=== PATIENT | male | born 1980 | race Hispanic/Latino ===

== ENCOUNTER 2021-08-19 01:13 | Emergency (ER) | payer SELFPAY ==
[2021-08-19 01:45] LABS: #Basophils 0.1 thou/uL (0.0-0.2); #Eosinphils 0.4 thou/uL (0.0-0.7); #Lymphocytes 4.6 thou/uL (1.20-3.40); #Neutrophils 4.8 thou/uL (1.40-6.50); %Basophils 0.9 % (0.0-1.0); %Eosinophils 3.8 % (0.0-10.0); %Lymphocytes 42.5 % (21.0-51.0); %Monocytes 8.9 % (0.0-10.0); Hemoglobin 15.6 g/dL (14.0-18.0); Mean Corpuscular HGB CONC 36.1 g/dL (32.0-36.0); Mean Corpuscular Hemoglobin 32.3 pg (27.0-31.0); Mean Corpuscular Volume 89.5 fL (78.0-98.0); Mean Platelet Volume 6.6 fL (7.4-10.4); Platelet Count 333 thou/uL (130-400); Red Blood Cell (RBC) Count 4.83 mill/uL (4.70-6.10); White Blood Cell (WBC) Count 10.9 thou/uL (4.8-10.8)
[2021-08-19 02:08] LABS: ALT (SGPT) 29 U/L (8-55); AST (SGOT) 21 U/L (5-34); Albumin 4.3 g/dL (3.5-5.0); Alkaline Phosphatase 83 U/L (40-110); Anion Gap 14 mmol/L (10-20); BUN (Urea Nitrogen) 22 mg/dL (8.9-20.6); Bilirubin, Total 0.3 mg/dL (0.2-1.2); Calc. Creatinine Clearance 0 mL/min (70-130); Calcium 9.5 mg/dL (7.8-10.44); Carbon Dioxide 25 mmol/L (22-29); Chloride 103 mmol/L (98-107); Globulin 3.2 g/dL (2.4-3.5); Glucose 134 mg/dL (70-105); Lipase 23 U/L (8-78); Potassium 3.6 mmol/L (3.5-5.1); Protein, Total 7.5 g/dL (6.0-8.3); Sodium 138 mmol/L (136-145)
[2021-08-19] MEDS ORDERED: Ketorolac Tromethamine 30 MG/ML VIAL ONE ×2 (03:09→05:09)
[2021-08-19] MEDS ORDERED: Ondansetron PF 4 MG/2 ML Vial ONE (03:09)
[2021-08-19] MEDS ORDERED: Morphine 4 MG/ML VIAL ONE (04:30)
[2021-08-19 04:46] LABS: Bacteria/HPF None Seen HPF (None Seen); Bilirubin Negative (Negative); Blood, Urine 3+ (Negative); Clarity Clear (Clear); Glucose, Urine (Dipstick) Normal (Negative); Ketone, Urine Negative (Negative); Leukocyte Negative Leu/uL (Negative); Nitrite Negative (Negative); Protein, Urine (Dipstick) 30 mg/dL (Neg-Trace); RBC/HPF Greater than 50 HPF (0-3); Squamous Epithelial None Seen HPF (0-3); Urobilinogen Normal mg/dL (Less than 2); WBC/HPF 0-3 HPF (0-3); pH, Urine 5.5 (5.0-9.0)
[2021-08-19] MEDS ORDERED: ISOVUE-370 76%-LOCM 1 ML ONE (11:38)
== END 2021-08-19 06:04 | disposition home or self-care (01) ==
LOC: ERS 01:13
DX: N21.1 Calculus in urethra (principal); N23 Unspecified renal colic
CPT/HCPCS: 36415; 74177; 80053; 81003; 81015; 83690; 85025; 96374; 96375; J1885; J2270; J2405; Q9966